=== PATIENT | female | born 1940 | race Caucasian/White ===

== ENCOUNTER → 2017-06-13 | Outpatient (CLI) | payer MEDICARE, OTHER ==
[2014-09-22 08:35] VITALS: BP 100/68
[~2017-06-13] MED LIST: CALC600T4 PO
--- NOTE | 2017-06-13 11:30 | KCIC ---
MR LUMBAR SPINE Indication: Low back pain left thigh numbness Technique: Sagittal T2, sagittal STIR, and sagittal T1-weighted images were obtained. Additional axial T1 and T2 weighted imaging was also performed. FINDINGS: There is no compression fracture or deformity. There is multilevel degenerative disc disease greatest at L2-L3. The cord terminates normally at the level of L1. Visualized intra-abdominal contents demonstrate cortical cysts of the right kidney. L5-S1 there is moderate disc height loss and broad-based disc protrusion. Osteophytic encroachment of the foramen abuts the exiting L5 nerves but does not appear to cause high-grade mass effect upon them. L4-L5 there is mild disc height loss and a broad-based disc protrusion. The protrusion abuts the descending L5 nerves in the lateral recess but does not appear to cause mass effect upon them. There is mild bilateral facet arthropathy. At L3-L4 there is a left eccentric inferiorly migrating disc extrusion which causes some mass effect on the descending left L4 nerve. Correlate for left L4 radiculopathy. There is also ligamentum flavum thickening and a broad-based disc protrusion causing mild central spinal stenosis. At L2-L3 there is moderate disc height loss reactive endplate edema. No central spinal or neural foraminal stenosis. IMPRESSION: Multilevel degenerative disc and facet disease which is notable at L3-L4 where there is a left eccentric inferiorly migrating disc extrusion causing some mass effect upon the L4 nerve. Correlate for left L4 radiculopathy symptoms. Other degenerative changes per level as above. Electronically signed by: Joshua Augustine MD (06/13/2017 11:27 AM) [id number]
== END | disposition home or self-care (01) ==
LOC: KCIC MRI 09:33
PROVIDERS: ATTEND Nurse Practitioner Family
DX: M51.36 Other intervertebral disc degeneration, lumbar region (principal); R20.0 Anesthesia of skin
CPT/HCPCS: 72148

== ENCOUNTER → 2020-04-15 | Outpatient (CLI) | payer MEDICARE ==
[2014-09-22 08:35] VITALS: BP 100/68
== END | disposition home or self-care (01) ==
LOC: LAB 14:00
PROVIDERS: ATTEND Internal Medicine Gastroenterology
DX: Z01.818 Encounter for other preprocedural examination (principal); Z11.59 Encounter for screening for other viral diseases
CPT/HCPCS: C9803; U0003; 36415

== ENCOUNTER → 2020-04-20 | Day surgery (SDC) | payer MEDICARE, OTHER ==
[~2020-04-20] MED LIST changes: +IV RINGERS,LACTATED 1000ML 1,000 ML IV ONE; +PROPOFOL 10 MG/ML (20ML) VIAL. IV ONE
[2020-04-20 09:26] VITALS: BP 128/62
--- NOTE | 2020-04-20 09:54 | HP ---
ADMIT DATE: 04/20/2020 UPDATED HISTORY AND PHYSICAL REFERRING PHYSICIAN: DARIEN Peres. HISTORY OF PRESENT ILLNESS: A 79-year-old female with past medical history significant for colonic polyps, hyperlipidemia and osteoporosis is seen for interval colon exam. Bowel habits have been regular without diarrhea or constipation. Weight and appetite are stable and she does have a history of colonic polyps and requests an interval exam. PAST MEDICAL HISTORY: Hyperlipidemia, osteoporosis, colonic polyps. ALLERGIES: DOXYCYCLINE. MEDICATIONS: Calcium carbonate. FAMILY HISTORY: Significant for breast cancer with multiple female family members, diabetes, hypertension and OR. SOCIAL HISTORY: She is a former smoker and a social drinker. PAST SURGICAL HISTORY: Status post appendectomy and tonsillectomy. REVIEW OF SYSTEMS: Per records. PHYSICAL EXAMINATION: GENERAL: Reveals a well-nourished, well-developed female who is alert, cooperative, in no acute distress. VITAL SIGNS: Temperature is 97.2, pulse 82, respirations 18. LUNGS: Clear. CARDIOVASCULAR: Reveals an S1, S2 without S3, S4 or appreciable murmur. ABDOMEN: Soft abdomen, normal bowel sounds, without appreciable hepatosplenomegaly. EXTREMITIES: No cyanosis, clubbing or edema. IMPRESSION AND PLAN: History of colonic polyps. Surveillance exam is recommended. Risks and benefits of procedure including risk of hemorrhage and perforation during the operation were discussed. The patient is willing to proceed. YAMILKA TAMEZ MD DR: WOLF/ollie JOB#: [id number] / [id number]
== END | disposition home or self-care (01) ==
LOC: ENDOS 07:27
PROVIDERS: ATTEND Internal Medicine Gastroenterology
DX: Z12.11 Encounter for screening for malignant neoplasm of colon (principal); K57.30 Diverticulosis of large intestine without perforation or abscess without bleeding; K64.0 First degree hemorrhoids; E78.5 Hyperlipidemia, unspecified; Z87.39 Personal history of other diseases of the musculoskeletal system and connective tissue; Z86.010 Personal history of colon polyps; Z88.6 Allergy status to analgesic agent; Z87.891 Personal history of nicotine dependence; Z72.89 Other problems related to lifestyle; Z98.890 Other specified postprocedural states; Z83.3 Family history of diabetes mellitus; Z82.49 Family history of ischemic heart disease and other diseases of the circulatory system; Z80.3 Family history of malignant neoplasm of breast
CPT/HCPCS: G0105; J2704; 45378; 77002